=== PATIENT | male | born 1965 | race Two or more races ===

== ENCOUNTER 2020-02-29 14:14 | Emergency (ER) | payer MEDICAID, OTHER ==
--- NOTE | 2020-02-29 14:41 | CT ---
EXAMINATION: Head wo Cont SEX: Male AGE: 54 years CLINICAL HISTORY: 54-year-old male acute onset SLURRED SPEECH and FACIAL DROOP ("1/2 hour"). Scan technique: Volume acquisition of data emergency unenhanced CT scan of the head brain obtained with the patient lying supine on the Siemens multislice scanner [place], [place]. All data archived in the PACS system for storage, reformatting and study. No comparisons. INTERPRETATION: Microvascular ischemic changes. Otherwise Negative exam. No intracranial bleed. 1. Uniformly thick bony calvarium and symmetric clear pneumatization of the paranasal/mastoid sinuses. 2. Physiologic midline pineal and symmetric choroid plexus calcifications. 3. No supratentorial or posterior fossa mass lesion. Cerebellum and brainstem unremarkable. 4. Scattered tiny areas of decreased attenuation identified throughout the basal ganglia both cerebral hemispheres suggesting microvascular ischemia. Diabetic? Hypertension? Carotid vascular disease?. 5. No large focal areas of ischemic infarct, signs of cerebral edema, or encephalomalacia. 6. No sign of acute intracerebral, intraventricular or subarachnoid bleed. 7. No abnormal extracerebral/intracranial epidural or subdural hematoma.
[2020-02-29 15:02] LABS: ANION GAP 12.9 mEq/L (7-13); CHLORIDE,CL 104 mmol/L (98-107); SODIUM,NA 142 mmol/L (136-145)
--- NOTE | 2020-02-29 15:10 | EDM.PDOC ---
ED HPI GENERAL MEDICAL PROBLEM - General Chief Complaint: Neuro Symptoms/Deficits Stated Complaint: STROKE CODE Time Seen by Provider: 02/29/20 14:50 Source of Information: Reports: Patient History Limitations: Reports: No Limitations - History of Present Illness INITIAL COMMENTS - FREE TEXT/NARRATIVE: This 54 yo male patient was brought to the ED by [facility] due to right sided wea kness, slurred speech and right sided facial droop. The patient was taken directly to CT upon arrival in the ED. The patient reports he has been having intermittent similar symptoms over the past year along with increased fatigue. 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 The patient reports he was staggering as he was attempting to sit on the couch. The patient reports he has had several of these episodes in the past. The patient reports he was bitten by a wood tick about 1 year ago and about 3 months ago and wonders if he got some disease from those bites. Onset: Today Duration: Intermittent Location: Reports: Other Quality: Reports: Other Severity: Moderate Improves with: Reports: None Worsens with: Reports: None Context: Reports: Other Associated Symptoms: Reports: Other Treatments REPAIRER AND CHECKER: Reports: EKG, IV/IO - Related Data Allergies Allergy/AdvReac Type Severity Reaction Status Date / Time No Known Allergies Allergy Verified 02/29/20 14:50 Home Meds: Home Meds DULoxetine [Cymbalta] 30 mg PO DAILY 02/29/20 [History] Past Medical History HEENT History: Reports: None Cardiovascular History: Reports: None Respiratory History: Reports: None Gastrointestinal History: Reports: None Genitourinary History: Reports: None Musculoskeletal History: Reports: None Neurological History: Reports: Other (See Below) Other Neuro History: pt states hx of right hand numbness 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 Endocrine/Metabolic History: Reports: None Hematologic History: Reports: None Immunologic History: Reports: None Oncologic (Cancer) History: Reports: None Dermatologic History: Reports: None - Infectious Disease History Infectious Disease History: Reports: None - Past Surgical History Head Surgeries/Procedures: Reports: None Social & Family History - Family History Family Medical History: Noncontributory - Tobacco Use Smoking Status *Q: Never Smoker - Caffeine Use Caffeine Use: Reports: Soda - Recreational Drug Use Recreational Drug Use: No ED ROS GENERAL - Review of Systems Review Of Systems: Comprehensive ROS is negative, except as noted in HPI. ED EXAM, NEURO - Physical Exam Exam: See Below Exam Limited By: No Limitations General Appearance: Alert, WD/WN, Moderate Distress Eye Exam: Bilateral Eye: EOMI, Normal Inspection, PERRL Ears: Normal External Exam, Normal Canal, Hearing Grossly Normal, Normal TMs Nose: Normal Inspection, Normal Mucosa, No Blood Throat/Mouth: Normal Inspection, Normal Lips, Normal Teeth, Normal Gums, Normal Oropharynx, Normal Voice, No Airway Compromise Head Exam: Atraumatic, Normocephalic Neck: Normal Inspection, Supple, Non-Tender, Full Range of Motion Respiratory/Chest: No Respiratory Distress, Lungs Clear, Normal Breath Sounds, No Accessory Muscle Use, Chest Non-Tender Cardiovascular: Normal Peripheral Pulses, Regular Rate, Rhythm, No Edema, No Gallop, No JVD, No Murmur, No Rub GI/Abdominal: Normal Bowel Sounds, Soft, Non-Tender, No Organomegaly, No Distention, No Abnormal Bruit, No Mass (Male) Exam: Deferred Rectal (Males) Exam: Deferred Neurological: Alert, Normal Mood/Affect, Normal Dorsiflexion, CN II-XII Intact, Normal Plantar Flexion, Normal Gait, Normal Reflexes, No Motor/Sensory Deficits, Oriented x 3 Back Exam: Normal Inspection, Full Range of Motion, NT Extremities: Normal Inspection, Normal Range of Motion, Non-Tender, No Pedal Edema, Normal Capillary Refill Psychiatric: Normal Affect, Normal Mood Skin Exam: Warm, Dry, Intact, Normal Color, No Rash Course - Vital Signs Last Recorded V/S: Last Vital Signs Temp 36.4 C 02/29/20 14:46 Pulse 71 02/29/20 14:47 Resp 18 02/29/20 14:47 BP 143/93 H 02/29/20 14:47 Pulse Ox 99 02/29/20 14:47 - Orders/Labs/Meds Orders: Active Orders 24 hr Category Date Time Status EKG Documentation Completion [RC] STAT Care 02/29/20 14:28 Active LYME, TOTAL AB TEST/REFLEX [REF] Stat Lab 02/29/20 14:32 Received Labs: Laboratory Tests 02/29/20 02/29/20 02/29/20 Range/Units 14:32 14:32 14:32 WBC 6.2 (5.0-10.0) 10^3/uL RBC 5.05 (4.6-6.2) 10^6/uL Hgb 15.2 (14.0-18.0) g/dL Hct 42.9 (40.0-54.0) % MCV 85.0 (80-100) fL MCH 30.1 (27.0-34.0) pg MCHC 35.4 H (33.0-35.0) g/dL Plt Count 189 (150-450) 10^3/uL Neut % (Auto) 51.9 (42.2-75.2) % Lymph % (Auto) 31.3 (20.5-50.1) % [place] % (Auto) 14.0 H (2-8) % Eos % (Auto) 2.3 (1.0-3.0) % Baso % (Auto) 0.5 (0.0-1.0) % PT 10.3 (9.0-12.0) SEC INR 1.1 (0.9-1.2) Sodium 142 (136-145) mmol/L Potassium 3.9 (3.5-5.1) mmol/L Chloride 104 (98-107) mmol/L Carbon Dioxide 29 (21-32) mmol/L Anion Gap 12.9 (7-13) mEq/L BUN 11 (7-18) mg/dL Creatinine 1.13 (0.70-1.30) mg/dL Est Cr Clr Drug Dosing 72.99 mL/min Estimated GFR (MDRD) > 60 BUN/Creatinine Ratio 9.7 (No establ ref range) Glucose 83 (74-99) mg/dL Calcium 8.8 (8.5-10.1) mg/dL Total Bilirubin 0.6 (0.2-1.0) mg/dL AST 22 (15-37) U/L ALT 21 (16-63) U/L Alkaline Phosphatase 87 (46-116) U/L Troponin I < 0.017 (0.000-0.056) ng/mL Total Protein 7.5 (6.4-8.2) g/dL Albumin 4.0 (3.4-5.0) g/dL Globulin 3.5 Albumin/Globulin Ratio 1.1 Departure - Departure Time of Disposition: 15:50 Disposition: Home, Self-Care 01 Condition: Fair Clinical Impression: Neurological deficit, transient - Discharge Information *PRESCRIPTION DRUG MONITORING PROGRAM REVIEWED*: Not Applicable *COPY OF PRESCRIPTION DRUG MONITORING REPORT IN PATIENT KATLIN: Not Applicable Referrals: PCP,None [Primary Care Provider] - Forms: ED Department Discharge Care Plan Goals: The patient was advised of the examination, lab, EKG and CT results during the visit. The patient was encouraged to follow-up with his primary care facility. The patient will be getting the results from the Lyme Disease test as soon as it is received. If the patient has any additional symptoms or concerns, the patient should either return to the emergency department or visit his primary care facility. Sepsis Event Note (ED) - Evaluation Sepsis Screening Result: No Definite Risk - Focused Exam Vital Signs: Vital Signs Temp Pulse Resp BP Pulse Ox 02/29/20 14:47 71 18 143/93 H 99 02/29/20 14:46 36.4 C - My Orders Last 24 Hours: My Active Orders 02/29/20 14:28 EKG Documentation Completion [RC] STAT 02/29/20 14:32 LYME, TOTAL AB TEST/REFLEX [REF] Stat - Assessment/Plan Last 24 Hours: My Active Orders 02/29/20 14:28 EKG Documentation Completion [RC] STAT 02/29/20 14:32 LYME, TOTAL AB TEST/REFLEX [REF] Stat
== END 2020-02-29 16:01 | disposition home or self-care (01) ==
LOC: DL.ED 14:14
DX: R29.818 Other symptoms and signs involving the nervous system (principal); Z79.899 Other long term (current) drug therapy
CPT/HCPCS: 36415; 70450; 80053; 82962; 84484; 85025; 85610; 86618; 93005; 99285-25

== ENCOUNTER 2020-07-11 04:20 | Emergency (ER) | payer MEDICAID ==
[2020-07-11] MEDS ORDERED: Ondansetron 4 MG/2 ML SDV IVPUSH ONE (04:48)
[2020-07-11] MEDS ORDERED: Sodium Chloride 0.9% 1,000 ML IV ONE (04:48)
[2020-07-11] MEDS ORDERED: Iopamidol 755 Mg/ML 100 ML Bottle IVPUSH ONE (04:54)
[2020-07-11 05:17] LABS: ANION GAP 15.9 mEq/L (7-13); CHLORIDE,CL 92 mmol/L (98-107); SODIUM,NA 131 mmol/L (136-145)
[2020-07-11] MEDS ORDERED: Potassium Chloride 10 MEQ in Premix Bag 1 BAG IV ONE ×4 (05:20)
[2020-07-11] MEDS ORDERED: fentaNYL 100 MCG/2 ML SDV IVPUSH ONE (06:04)
--- NOTE | 2020-07-11 06:04 | CT ---
PROCEDURE INFORMATION: Exam: CT Abdomen And Pelvis Without Contrast Exam date and time: 07/11/2020 5:27 AM Age: 54 years old Clinical indication: Abdominal pain; Generalized; Additional info: Distension pain, vomiting, creat 1.6 TECHNIQUE: Imaging protocol: Computed tomography of the abdomen and pelvis without contrast. Radiation optimization: All CT scans at this facility use at least one of these dose optimization techniques: automated exposure control; mA and/or kV adjustment per patient size (includes targeted exams where dose is matched to clinical indication); or iterative reconstruction. COMPARISON: No relevant prior studies available. FINDINGS: Lungs: Lung bases are clear. Liver: Normal. No mass. Gallbladder and bile ducts: Normal. No calcified stones. No ductal dilation. Pancreas: Normal. No ductal dilation. Spleen: Normal. No splenomegaly. Adrenal glands: Normal. No mass. Kidneys and ureters: Normal. No hydronephrosis. Stomach and bowel: Innumerable sigmoid colon diverticuli. Mild stranding of the sigmoid mesenteric fat indicating acute diverticulitis. There are dilated loops of fluid-filled small bowel in the upper and anterior abdomen distended to a diameter of 5.0 cm in the left upper abdomen. Terminal ileum is normal in caliber. Appendix: No evidence of appendicitis. Intraperitoneal space: There is free intraperitoneal air. There are multiple locules of extraluminal air scattered within the mesenteric fat in the upper abdomen anteriorly. There is diffuse increased attenuation of the mesenteric fat in the anterior left abdomen indicating mesenteric edema. Vasculature: Unremarkable. No abdominal aortic aneurysm. Lymph nodes: Unremarkable. No enlarged lymph nodes. Urinary bladder: Unremarkable as visualized. Reproductive: Unremarkable as visualized. Bones/joints: Unremarkable. No acute fracture. Soft tissues: Abdominal wall soft tissues are unremarkable. IMPRESSION: 1. Free intraperitoneal air. Scattered mesenteric air. There is mesenteric edema and fluid. Findings are consistent with perforated hollow viscus. 2. Perforation is assumed to be at the level of the sigmoid colon where there are findings of mild sigmoid diverticulitis. The small bowel findings may be related to reactive changes to the diverticulitis and Katie diverticular perforation. Alternatively, findings may be related to small bowel perforation due to partial high-grade small bowel obstruction. This may be at the level of the right lower quadrant where there appears to be transition in the caliber of small bowel loops. 3. Lung bases demonstrate mild hypoventilatory changes.
[2020-07-11] MEDS ORDERED: Piperacillin/Tazobactam 3.375 GM in Sodium Chloride 0.9% 100 ML IV ONE (06:09)
[2020-07-11] MEDS ORDERED: Sodium Chloride 0.9% 100 ML ONE (06:26)
[2020-07-11] MEDS ORDERED: Metoclopramide 10 MG/2 ML SDV IVPUSH ONE (06:26)
[2020-07-11] MEDS ORDERED: LORazepam 2 MG/ML SDV IVPUSH ONE (06:26)
--- NOTE | 2020-07-11 06:36 | EDM.PDOC ---
ED HPI GENERAL MEDICAL PROBLEM - General Chief Complaint: Gastrointestinal Problem Stated Complaint: THROWING UP FOR OVER 3 DAYS, WEAK Time Seen by Provider: 07/11/20 04:50 Source of Information: Reports: Patient, Family History Limitations: Reports: No Limitations - History of Present Illness INITIAL COMMENTS - FREE TEXT/NARRATIVE: ED with c/o pain epigastric to low mid abdomen. Onset 2-3 days. Multiple Middle Abdominal Pain Score (Numeric/FACES): 5 - Related Data Allergies Allergy/AdvReac Type Severity Reaction Status Date / Time No Known Allergies Allergy Verified 02/29/20 14:50 Home Meds: Home Meds DULoxetine [Cymbalta] 30 mg PO DAILY 02/29/20 [History] Simvastatin [Zocor] 10 mg PO DAILY 07/11/20 [History] Past Medical History HEENT History: Reports: None Cardiovascular History: Reports: None Respiratory History: Reports: None Gastrointestinal History: Reports: None Genitourinary History: Reports: None Musculoskeletal History: Reports: None Neurological History: Reports: CVA, Other (See Below) Other Neuro History: pt states hx of right hand numbness 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, Anxiety Endocrine/Metabolic History: Reports: None Hematologic History: Reports: None Immunologic History: Reports: None Oncologic (Cancer) History: Reports: None Dermatologic History: Reports: None - Infectious Disease History Infectious Disease History: Reports: None - Past Surgical History Head Surgeries/Procedures: Reports: None GI Surgical History: Reports: Appendectomy, Cholecystectomy Social & Family History - Family History Family Medical History: No Pertinent Family History - Tobacco Use Tobacco Use Status *Q: Never Tobacco User Second Hand Smoke Exposure: No - Caffeine Use Caffeine Use: Reports: None - Recreational Drug Use Recreational Drug Use: No ED ROS GENERAL - Review of Systems Review Of Systems: Comprehensive ROS is negative, except as noted in HPI. ED EXAM, GI/ABD - Physical Exam Exam: See Below Exam Limited By: No Limitations General Appearance: Alert, Moderate Distress Eyes: Bilateral: EOMI Ears: Normal External Exam Nose: Normal Inspection Throat/Mouth: Normal Inspection Head: Atraumatic, Normocephalic Neck: Normal Inspection Respiratory/Chest: No Respiratory Distress, Lungs Clear, Normal Breath Sounds Cardiovascular: Normal Peripheral Pulses, Regular Rate, Rhythm GI/Abdominal Exam: Distended, Guarding, Tender, Abnormal Bowel Sounds Back Exam: Normal Inspection Extremities: Normal Inspection Neurological: Alert, Oriented, Normal Cognition Psychiatric: Anxious Skin Exam: Warm, Dry, Intact, Normal Color Course - Vital Signs Last Recorded V/S: Last Vital Signs Temp 97.5 F 07/11/20 04:47 Pulse 108 H 07/11/20 04:47 Resp 22 H 07/11/20 04:47 BP 163/104 H 07/11/20 04:47 Pulse Ox 96 07/11/20 04:47 - Orders/Labs/Meds Orders: Active Orders 24 hr Category Date Time Status CULTURE BLOOD [BC] Stat Lab 07/11/20 04:50 Received Labs: Laboratory Tests 07/11/20 07/11/20 07/11/20 Range/Units 04:36 04:50 04:50 WBC 8.8 (5.0-10.0) 10^3/uL RBC 5.52 (4.6-6.2) 10^6/uL Hgb 16.7 D (14.0-18.0) g/dL Hct 45.2 (40.0-54.0) % MCV 81.9 D (80-100) fL MCH 30.3 (27.0-34.0) pg MCHC 36.9 H (33.0-35.0) g/dL Plt Count 207 (150-450) 10^3/uL Neut % (Auto) 81.4 H (42.2-75.2) % Lymph % (Auto) 8.4 L (20.5-50.1) % [place] % (Auto) 9.9 H (2-8) % Eos % (Auto) 0.2 L (1.0-3.0) % Baso % (Auto) 0.1 (0.0-1.0) % Sodium 131 L D (136-145) mmol/L Potassium 2.9 L (3.5-5.1) mmol/L Chloride 92 L D (98-107) mmol/L Carbon Dioxide 26 (21-32) mmol/L Anion Gap 15.9 H (7-13) mEq/L BUN 27 H (7-18) mg/dL Creatinine 1.58 H (0.70-1.30) mg/dL Est Cr Clr Drug Dosing 55.60 mL/min Estimated GFR (MDRD) 46 BUN/Creatinine Ratio 17.1 (No establ ref range) Glucose 187 H (74-99) mg/dL Lactic Acid (0.4-2.0) mmol/L Calcium 9.1 (8.5-10.1) mg/dL Total Bilirubin 1.9 H (0.2-1.0) mg/dL AST 14 L (15-37) U/L ALT 15 L (16-63) U/L Alkaline Phosphatase 87 (46-116) U/L Troponin I < 0.017 (0.000-0.056) ng/mL Total Protein 8.1 (6.4-8.2) g/dL Albumin 3.5 (3.4-5.0) g/dL Globulin 4.6 Albumin/Globulin Ratio 0.8 Amylase 43 (25-115) U/L Lipase 56 L (73-393) U/L SARS-CoV-2 RNA ([place]RE[place]) Negative (NEGATIVE) 07/11/20 Range/Units 04:50 WBC (5.0-10.0) 10^3/uL RBC (4.6-6.2) 10^6/uL Hgb (14.0-18.0) g/dL Hct (40.0-54.0) % MCV (80-100) fL MCH (27.0-34.0) pg MCHC (33.0-35.0) g/dL Plt Count (150-450) 10^3/uL Neut % (Auto) (42.2-75.2) % Lymph % (Auto) (20.5-50.1) % [place] % (Auto) (2-8) % Eos % (Auto) (1.0-3.0) % Baso % (Auto) (0.0-1.0) % Sodium (136-145) mmol/L Potassium (3.5-5.1) mmol/L Chloride (98-107) mmol/L Carbon Dioxide (21-32) mmol/L Anion Gap (7-13) mEq/L BUN (7-18) mg/dL Creatinine (0.70-1.30) mg/dL Est Cr Clr Drug Dosing mL/min Estimated GFR (MDRD) BUN/Creatinine Ratio (No establ ref range) Glucose (74-99) mg/dL Lactic Acid 2.0 (0.4-2.0) mmol/L Calcium (8.5-10.1) mg/dL Total Bilirubin (0.2-1.0) mg/dL AST (15-37) U/L ALT (16-63) U/L Alkaline Phosphatase (46-116) U/L Troponin I (0.000-0.056) ng/mL Total Protein (6.4-8.2) g/dL Albumin (3.4-5.0) g/dL Globulin Albumin/Globulin Ratio Amylase (25-115) U/L Lipase (73-393) U/L SARS-CoV-2 RNA ([place]) (NEGATIVE) Meds: Medications Discontinued Medications Generic Name Dose Route Start Last Admin Trade Name Freq PRN Reason Stop Dose Admin Fentanyl 50 mcg 07/11/20 06:04 07/11/20 06:10 Sublimaze IVPUSH 07/11/20 06:05 50 mcg ONETIME ONE Administration Sodium Chloride 1,000 mls @ 250 mls/hr 07/11/20 04:48 07/11/20 04:54 Normal Saline IV 07/11/20 08:47 250 mls/hr .BOLUS ONE Administration Potassium Chloride 10 meq/ 100 mls @ 100 mls/hr 07/11/20 05:20 07/11/20 06:58 Premix IV 07/11/20 06:19 Infused ONETIME ONE Infusion Potassium Chloride 10 meq/ 100 mls @ 100 mls/hr 07/11/20 05:20 07/11/20 06:54 Premix IV 07/11/20 06:19 Not Given ONETIME ONE Piperacillin Sod/Tazobactam 100 mls @ 200 mls/hr 07/11/20 06:09 07/11/20 07:16 Sod 3.375 gm/ Sodium Chloride IV 07/11/20 06:38 Infused ONETIME ONE Infusion Sodium Chloride Confirm 07/11/20 06:26 07/11/20 06:38 Normal Saline Administered 07/11/20 06:27 Not Given Dose 100 mls @ as directed .ROUTE .STK-MED ONE Potassium Chloride 20 meq/ 100 mls @ 50 mls/hr 07/11/20 06:49 07/11/20 06:55 Premix IV 07/11/20 08:48 50 mls/hr ONETIME ONE Administration Potassium Chloride Confirm 07/11/20 06:51 07/11/20 06:55 Kcl 20 Meq In Water 100 Ml Administered 07/11/20 06:52 Not Given Dose 100 mls @ as directed .ROUTE .STK-MED ONE Iopamidol 100 ml 07/11/20 04:54 07/11/20 05:37 Isovue-370 (76%) IVPUSH 07/11/20 04:55 Not Given ONETIME ONE Lorazepam 1 mg 07/11/20 06:26 07/11/20 06:38 Ativan IVPUSH 07/11/20 06:27 1 mg ONETIME ONE Administration Metoclopramide HCl 10 mg 07/11/20 06:26 07/11/20 06:38 Reglan IVPUSH 07/11/20 06:27 10 mg ONETIME ONE Administration Ondansetron HCl 4 mg 07/11/20 04:48 07/11/20 04:54 Zofran IVPUSH 07/11/20 04:49 4 mg ONETIME ONE Administration - Re-Assessments/Exams Free Text/Narrative Re-Assessment/Exam: 07/11/20 06:[address] Ivory Smith accepting patient, transfer via [facility]. Departure - Departure Time of Disposition: 07:00 Disposition: DC/Tfer to Acute Hospital 02 Condition: Good Clinical Impression: Perforated bowel, Diverticulitis Abdominal pain Qualifiers: Abdominal location: generalized Qualified Code(s): R10.84 - Generalized abdominal pain - Discharge Information *PRESCRIPTION DRUG MONITORING PROGRAM REVIEWED*: No *COPY OF PRESCRIPTION DRUG MONITORING REPORT IN PATIENT KATLIN: No Forms: ED Department Discharge Sepsis Event Note (ED) - Evaluation Sepsis Screening Result: No Definite Risk - My Orders Last 24 Hours: My Active Orders 07/11/20 04:50 CULTURE BLOOD [BC] Stat - Assessment/Plan Last 24 Hours: My Active Orders 07/11/20 04:50 CULTURE BLOOD [BC] Stat
[2020-07-11] MEDS ORDERED: Potassium Chloride 20 MEQ in Premix Bag 1 BAG IV ONE (06:49)
[2020-07-11] MEDS ORDERED: Potassium Chloride 100 ML ONE (06:51)
== END 2020-07-11 07:13 ==
LOC: DL.ED 04:20
DX: K57.20 Diverticulitis of large intestine with perforation and abscess without bleeding (principal); F41.9 Anxiety disorder, unspecified; Z79.899 Other long term (current) drug therapy; Z20.828 Contact with and (suspected) exposure to other viral communicable diseases
CPT/HCPCS: 36415; 74176; 80053; 82150; 83605; 83690; 84484; 85025; 87040; 93005; 96365; 96367; 96375; 96376; 99284; 99285-25; J2060; J2405; J2543; J2765; J3010; J3480; J7030; U0002

== ENCOUNTER 2020-12-28 15:21 | Emergency (ER) | payer MEDICAID ==
[2020-12-28] MEDS: Lidocaine 2% with EPINEPHrine 1:200,000 20 ML SDV INJECT ONE (15:48)
[2020-12-28] MEDS: Bacitracin Oint 1 GM U/D Packet TOP ONE (15:48)
--- NOTE | 2020-12-28 16:06 | EDM.PDOC ---
ED HPI GENERAL MEDICAL PROBLEM - General Chief Complaint: Skin Complaint Stated Complaint: POSSIBLE INFECTION IN RIGHT FOOT Time Seen by Provider: 12/28/20 15:45 Source of Information: Reports: Patient History Limitations: Reports: No Limitations - History of Present Illness INITIAL COMMENTS - FREE TEXT/NARRATIVE: This 55 yo male patient reports to the ED with a wound to his right foot. The patient reports he stepped on something 3-4 days ago and his pain has been getting worse. The patient attempted to get into the Clinic, but was advised to come to the ED. Onset: Unknown/Unsure Duration: Day(s):, Constant, Getting Worse Location: Reports: Lower Extremity, Right Quality: Reports: Ache, Dull Severity: Moderate Improves with: Reports: None Worsens with: Reports: None Context: Reports: Other - Related Data Allergies Allergy/AdvReac Type Severity Reaction Status Date / Time No Known Allergies Allergy Verified 12/28/20 15:36 Home Meds: Home Meds DULoxetine [Cymbalta] 30 mg PO DAILY 02/29/20 [History] Simvastatin [Zocor] 10 mg PO DAILY 07/11/20 [History] Past Medical History HEENT History: Reports: None Cardiovascular History: Reports: None Respiratory History: Reports: None Gastrointestinal History: Reports: Diverticulosis Genitourinary History: Reports: None Musculoskeletal History: Reports: None Neurological History: Reports: CVA, Other (See Below) Other Neuro History: Pt states he has had 7 strokes. 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, Anxiety Endocrine/Metabolic History: Reports: None Hematologic History: Reports: None Immunologic History: Reports: None Oncologic (Cancer) History: Reports: None Dermatologic History: Reports: None - Infectious Disease History Infectious Disease History: Reports: None - Past Surgical History Head Surgeries/Procedures: Reports: None GI Surgical History: Reports: Appendectomy, Cholecystectomy Social & Family History - Family History Family Medical History: No Pertinent Family History - Tobacco Use Tobacco Use Status *Q: Never Tobacco User Second Hand Smoke Exposure: Yes - Caffeine Use Caffeine Use: Reports: Coffee, Soda - Recreational Drug Use Recreational Drug Use: No ED ROS GENERAL - Review of Systems Review Of Systems: Comprehensive ROS is negative, except as noted in HPI. ED EXAM, SKIN/RASH Exam: See Below Exam Limited By: No Limitations General Appearance: Alert, WD/WN, Mild Distress Eye Exam: Bilateral Eye: EOMI, Normal Inspection, PERRL Ears: Normal External Exam, Normal Canal, Hearing Grossly Normal, Normal TMs Nose: Normal Inspection, Normal Mucosa, No Blood Throat/Mouth: Normal Inspection, Normal Lips, Normal Teeth, Normal Gums, Normal Oropharynx, Normal Voice, No Airway Compromise Head: Atraumatic, Normocephalic Neck: Normal Inspection, Supple, Non-Tender, Full Range of Motion Respiratory/Chest: No Respiratory Distress, Lungs Clear, Normal Breath Sounds, No Accessory Muscle Use, Chest Non-Tender Cardiovascular: Normal Peripheral Pulses, Regular Rate, Rhythm, No Edema, No Gallop, No JVD, No Murmur, No Rub GI/Abdominal: Normal Bowel Sounds, Soft, Non-Tender, No Organomegaly, No Distention, No Abnormal Bruit, No Mass (Male) Exam: Deferred Rectal (Males) Exam: Deferred Back Exam: Normal Inspection, Full Range of Motion, NT Extremities: Leg Pain (right mid foot pain with a small abscess) Neurological: Alert, Oriented, CN II-XII Intact, Normal Cognition, Normal Gait, Normal Reflexes, No Motor/Sensory Deficits Psychiatric: Anxious Skin: Warm, Dry, Normal Color, No Rash, Wound/Incision Location, Skin: Lower Extremity, Right Characteristics: Erythematous Associated features: Tenderness, Induration, Inflammation Lymphatic: No Adenopathy ED SKIN PROCEDURES - I&D Site: right foot Skin Prep: Providone-Iodine (Betadine), Isopropyl Alcohol (Alcohol) Local Anesthesia: Lidocaine: 2% with EPI Local Anesthetic Volume: 2cc Area Incised With: 11 Blade, Scissors Drainage: Purulent, Small Amount Probed to Break Up Loculations: Yes Packed With: None Sterile Dressing: Adhesive Dressing Complications: No Course - Vital Signs Last Recorded V/S: Last Vital Signs Temp 97.8 F 12/28/20 15:37 Pulse 93 12/28/20 15:37 Resp 20 12/28/20 15:37 BP 135/79 12/28/20 15:37 Pulse Ox 95 12/28/20 15:37 - Orders/Labs/Meds Orders: Active Orders 24 hr Category Date Time Status CULTURE WOUND [RM] Stat Lab 12/28/20 16:03 Ordered Meds: Medications Discontinued Medications Generic Name Dose Route Start Last Admin Trade Name Freq PRN Reason Stop Dose Admin Bacitracin 1 dose 12/28/20 15:39 12/28/20 15:48 Bacitracin Oint 1 Gm U/D Packet TOP 12/28/20 15:40 1 dose ONETIME ONE Administration Lidocaine/Epinephrine 20 ml 12/28/20 15:39 12/28/20 15:48 Lidocaine 2% With Epinephrine 1:200,000 20 Ml Sdv INJECT 12/28/20 15:40 20 ml ONETIME ONE Administration Departure - Departure Time of Disposition: 16:04 Disposition: Home, Self-Care 01 Condition: Fair Clinical Impression: Abscess - Discharge Information *PRESCRIPTION DRUG MONITORING PROGRAM REVIEWED*: Not Applicable *COPY OF PRESCRIPTION DRUG MONITORING REPORT IN PATIENT KATLIN: Not Applicable Instructions: Skin Abscess, [id number] Forms: ED Department Discharge Care Plan Goals: The patient was advised of the examination results during the visit. The patient's abscess was incised and drained during the visit. The patient was discharged with a script for Keflex (500 mg) #30 to take 1 by mouth 3 times per day for 10 days. If the patient has any additional symptoms or concerns, the patient should either visit his primary care facility or return to the ED. Sepsis Event Note (ED) - Evaluation Sepsis Screening Result: No Definite Risk - Focused Exam Vital Signs: Vital Signs Temp Pulse Resp BP Pulse Ox 12/28/20 15:37 97.8 F 93 20 135/79 95 - My Orders Last 24 Hours: My Active Orders 12/28/20 16:03 CULTURE WOUND [RM] Stat - Assessment/Plan Last 24 Hours: My Active Orders 12/28/20 16:03 CULTURE WOUND [RM] Stat
== END 2020-12-28 16:13 | disposition home or self-care (01) ==
LOC: DL.ED 15:21
DX: L02.415 Cutaneous abscess of right lower limb (principal)
CPT/HCPCS: 10060; 10061; 87070; 87077; 99283; 99283-25

== ENCOUNTER 2021-08-06 20:48 | Emergency (ER) | payer MEDICAID ==
[2021-08-06] MEDS ORDERED: Sodium Chloride 0.9% 10 ML Syringe FLUSH PRN (20:50)
[2021-08-06 21:33] LABS: ANION GAP 13.3 mEq/L (7-13); CHLORIDE,CL 100 mmol/L (98-107); SODIUM,NA 140 mmol/L (136-145)
[2021-08-06] MEDS ORDERED: Sodium Chloride 0.9% 1,000 ML IV ONE (21:51)
[2021-08-06 22:13] LABS: AMPHETAMINES,URINE NEGATIVE (NEGATIVE); BARBITURATES,URINE NEGATIVE (NEGATIVE); BENZODIAZEPINE,URINE NEGATIVE (NEGATIVE); MDMA (ECSTASY), URINE NEGATIVE (NEGATIVE); METHADONE,URINE NEGATIVE (NEGATIVE); METHAMPHETAMINES,URINE NEGATIVE (NEGATIVE); OPIATES,URINE NEGATIVE (NEGATIVE); OXYCODONE,URINE NEGATIVE (NEGATIVE); PHENCYCLIDINE,URINE NEGATIVE (NEGATIVE); TCA,URINE NEGATIVE (NEGATIVE)
[2021-08-06] MEDS ORDERED: Doxycycline Monohydrate 100 MG Cap PO ONE (22:21)
== END 2021-08-06 22:40 | disposition home or self-care (01) ==
LOC: DL.ED 20:48
DX: U07.1 COVID-19 (principal); J01.00 Acute maxillary sinusitis, unspecified; F41.9 Anxiety disorder, unspecified; Z79.899 Other long term (current) drug therapy; Z86.73 Personal history of transient ischemic attack (TIA), and cerebral infarction without residual deficits
CPT/HCPCS: 36415; 70450; 80053; 80305-QW; 80307; 81001; 82947; 83605; 83735; 84443; 85025; 85610; 86140; 93005; 93010; 99284-25; 99285; A9270-GY; J7030; U0002

== ENCOUNTER 2021-10-04 01:23 | Emergency (ER) | payer MEDICAID ==
[2021-10-04 03:03] LABS: ANION GAP 13.7 mEq/L (7-13); CHLORIDE,CL 102 mmol/L (98-107); SODIUM,NA 139 mmol/L (136-145)
== END 2021-10-04 04:15 | disposition home or self-care (01) ==
LOC: DL.ED 01:23
DX: F41.9 Anxiety disorder, unspecified (principal); Z79.899 Other long term (current) drug therapy; Z86.73 Personal history of transient ischemic attack (TIA), and cerebral infarction without residual deficits; Z72.820 Sleep deprivation
CPT/HCPCS: 36415; 70450; 80053; 84443; 84484; 85025; 93005; 93010; 99284; 99284-25

== ENCOUNTER 2021-10-14 00:14 | Emergency (ER) | payer MEDICAID | END 2021-10-14 02:10 | disposition home or self-care (01) | LOC: DL.ED 00:14 | DX: S50.01XA Contusion of right elbow, initial encounter (principal); F41.9 Anxiety disorder, unspecified; Z86.73 Personal history of transient ischemic attack (TIA), and cerebral infarction without residual deficits; Z79.899 Other long term (current) drug therapy; Z86.16 Personal history of COVID-19 | CPT/HCPCS: 99283 ==